=== PATIENT | female | born 1995 | race Caucasian/White ===

== ENCOUNTER 2017-01-23 17:14 | Emergency (ER) | payer OTHER ==
[2017-01-23 17:22] VITALS: BP 136/73; PULSE 84; TEMP 97.6; BMI 23.9
[2017-01-23 19:00] LABS: URINE APPEARANCE TURBID; URINE BILIRUBIN NEGATIVE (NEGATIVE); URINE COLOR YELLOW; URINE GLUCOSE (UA) NEGATIVE (NEGATIVE); URINE KETONE 2+ (NEGATIVE); URINE NITRITE NEGATIVE (NEGATIVE); URINE UROBILINOGEN NEGATIVE E.U./dl (0.2-1.0)
[2017-01-23 19:03] LABS: URINE BLOOD 2+ (NEGATIVE); URINE LEUK ESTERASE 3+ (NEGATIVE); URINE PROTEIN 1+ (NEGATIVE)
[2017-01-23 19:05] LABS: URINE BACTERIA FEW /hpf (NONE SEEN); URINE MUCUS FEW; URINE RBC 21 /hpf (0-3); URINE WBC 127 /hpf (3-5); YEAST RARE
[2017-01-23] MEDS ORDERED: ACETAMINOPHEN 325 MG TABLET (FP) ONE (19:24)
[2017-01-23] MEDS ORDERED: ACETAMINOPHEN 500 MG TABLET (FP) PO ONE (19:29)
--- NOTE | 2017-01-23 20:40 | PDOC ---
History of Present Illness - History of Present Illness Initial Comments: 01/23/17 20:47 Patient is a 21 year old female with significant medical hx of schizophrenia, anxiety/depression, bipolar disorder, and borderline personality disorder who is presenting to the ED s/p fall from last night. Last night the patient fell down a set of stairs at a friends house after having an argument around 1: 30AM. She states that before she fell, she felt dizzy, and then woke up at the bottom of the staircase. The patient states she fell down about 10 steps. She is complaining of pain to her neck, back of her head, elbows bilaterally, and left knee. The patient also notes noticing some blood in her urine today. Patient is not receiving medical treatment for her psychiatric history. LNMP: 01/20/17 Social Hx: marijuana use, current every day tobacco smoker Surgical Hx: oral surgery Allergies: NKDA <Ginette Hayward - Last Filed: 01/23/17 21:19> <Doris Drake - Last Filed: 01/23/17 21:21> - General Chief Complaint: Lightheaded Stated Complaint: FALL/INJURY Time Seen by Provider: 01/23/17 17:39 Past History <Ginette Hayward - Last Filed: 01/23/17 21:19> - Past Medical History Psychiatric Problems: Yes (schizo,bipolar,depression,multiple personality d/o) - Psycho/Social/Smoking Cessation Hx Anxiety: No Suicidal Ideation: No Smoking History: Never smoked Have you smoked in the past 12 months: Yes Number of Cigarettes Smoked Daily: 40 Information on smoking cessation initiated: Yes Hx Alcohol Use: No Drug/Substance Use Hx: Yes (marjuana) Substance Use Type: None <Doris Drake - Last Filed: 01/23/17 21:21> - Past Medical History Allergies/Adverse Reactions: Allergies Allergy/AdvReac Type Severity Reaction Status Date / Time No Known Allergies Allergy Verified 01/23/17 17:16 Home Medications: Ambulatory Orders NK [No Known Home Medication] 01/23/17 Review of Systems - Review of Systems Comments:: 01/23/17 20:48 CONSTITUTIONAL: Absent: fever, chills, diaphoresis, generalized weakness, malaise, loss of appetite HEENT: Absent: rhinorrhea, nasal congestion, throat pain, throat swelling, difficulty swallowing, mouth swelling, ear pain, eye pain, visual changes CARDIOVASCULAR: Absent: chest pain, syncope, palpitations, irregular heart rate, lightheadedness , peripheral edema RESPIRATORY: Absent: cough, shortness of breath, dyspnea with exertion, orthopnea, wheezing, stridor, hemoptysis GASTROINTESTINAL: Absent: abdominal pain, abdominal distension, nausea, vomiting, diarrhea, constipation, melena, hematochezia GENITOURINARY: Present: hematuria Absent: dysuria, frequency, urgency, hesitancy, flank pain, genital pain MUSCULOSKELETAL: Present: neck pain, elbow pain bilaterally, left knee pain Absent: myalgia, joint swelling SKIN: Absent: rash, itching, pallor HEMATOLOGIC/IMMUNOLOGIC: Absent: easy bleeding, easy bruising, lymphadenopathy, frequent infections ENDOCRINE: Absent: unexplained weight gain, unexplained weight loss, heat intolerance, cold intolerance NEUROLOGIC: Present: dizziness, headache Absent: focal weakness or paresthesia, unsteady gait, seizure, mental status changes, bladder or bowel incontinence. PSYCHIATRIC: Absent: anxiety, depression, suicidal or homicidal ideation, hallucinations <Ginette Hayward - Last Filed: 01/23/17 21:19> *Physical Exam - Vital Signs Last Vital Signs Temp Pulse Resp BP Pulse Ox 97.6 F 84 18 136/73 100 01/23/17 17:16 01/23/17 17:16 01/23/17 17:16 01/23/17 17:16 01/23/17 17:16 - Physical Exam Comments: 01/23/17 20:50 GENERAL: Well developed, well nourished. Awake and alert. No acute distress. HEENT: Normocephalic, atraumatic. PERRLA, EOMI. No conjunctival pallor. Sclera are non- icteric. Moist mucous membranes. Oropharynx is clear. NECK: Supple. Full ROM. No JVD. Carotid pulses 2+ and symmetric, without bruits. No thyromegaly. No lymphadenopathy. CARDIOVASCULAR: Regular rate and rhythm. No murmurs, rubs, or gallops. Distal pulses are 2+ and symmetric. PULMONARY: No evidence of respiratory distress. Lungs clear to auscultation bilaterally. No wheezing, rales or rhonchi. ABDOMINAL: Soft. Non-tender. Non-distended. No rebound or guarding. No organomegaly. Normoactive bowel sounds. MUSCULOSKELETAL: Lower left back tenderness. Normal range of motion at all joints. No bony deformities. EXTREMITIES: Right elbow superficial abrasion. Left elbow superficial abrasion with tenderness, No cyanosis. No clubbing. No edema. No calf tenderness. HAND: Superficial abrasion to the right thenar eminence. SKIN: Warm and dry. Normal capillary refill. No rashes. No jaundice. NEUROLOGICAL: Alert, awake, appropriate. Cranial nerves 2-12 intact. Normal speech. Gait is normal without ataxia. PSYCHIATRIC: Cooperative. Good eye contact. Appropriate mood and affect. <Ginette Hayward - Last Filed: 01/23/17 21:19> - Vital Signs Last Vital Signs Temp Pulse Resp BP Pulse Ox 97.6 F 84 18 136/73 100 01/23/17 17:16 01/23/17 17:16 01/23/17 17:16 01/23/17 17:16 01/23/17 17:16 <Doris Drake - Last Filed: 01/23/17 21:21> ED Treatment Course - ADDITIONAL ORDERS Additional order review: Laboratory Results 01/23/17 01/23/17 19:25 18:52 Urine Color Yellow Urine Appearance Turbid Urine pH 5.0 Urine Protein 1+ H Urine Glucose (UA) Negative Urine Ketones 2+ H Urine Blood 2+ H Urine Nitrite Negative Urine Bilirubin Negative Urine Urobilinogen Negative Ur Leukocyte Esterase 3+ H Urine RBC 21 Urine WBC 127 Ur Epithelial Cells Many Urine Bacteria Few Urine Mucus Few Urine Yeast Rare Urine HCG, Qual Negative - RADIOLOGY Radiograph Interpretation: 01/23/17 21:20 Blind Hanger: ([email or web address]) Report Date: 01/23/2017 20:18:00 Report Status: Preliminary Begin of Report Content Referring Physician: Doris Drake Patient Name: Tracey Martinez THIS IS A PRELIMINARY REPORT FROM [facility] EXAM: CT head/brain without contrast IMAGES: 163 EXAM DATE AND TIME: 2017-01-23 20:18:28.0 REASON FOR EXAM: Head trauma following a fall. COMPARISON: None FINDINGS: There are no calvarial, facial or skull base fractures. There are no intracranial hemorrhages or brain parenchymal contusion injuries. There are no extra-axial fluid collections or evidence of an intra-axial mass lesion. There is no evidence of an acute ischemic lesion at this time. The sulci and ventricles are normal in size. Orbital and petrous structures, cerebellopontine angles, and posterior fossa appear unremarkable. The paranasal and mastoid sinuses are clear. IMPRESSION: Normal CT scan of the head. No calvarial, facial or skull base fractures. No intracranial hemorrhages or brain parenchymal contusion injuries. . THIS DOCUMENT HAS BEEN ELECTRONICALLY SIGNED Aubrey Lizarraga MD. 01/23/2017 20:53 EVERETTE Sharma. Please call Imaging Return To Vendor [phone] ([phone]) with questions. End of Report Content - Medications Given in the ED: ED Medications Discontinued Medications Generic Name Dose Route Start Last Admin Trade Name Freq PRN Reason Stop Dose Admin Acetaminophen 1,000 mg 01/23/17 19:29 01/23/17 19:29 Tylenol - PO 01/23/17 19:30 1,000 mg NOW ONE Administration <Ginette Hayward - Last Filed: 01/23/17 21:19> - ADDITIONAL ORDERS Additional order review: Laboratory Results 01/23/17 01/23/17 19:25 18:52 Urine Color Yellow Urine Appearance Turbid Urine pH 5.0 Urine Protein 1+ H Urine Glucose (UA) Negative Urine Ketones 2+ H Urine Blood 2+ H Urine Nitrite Negative Urine Bilirubin Negative Urine Urobilinogen Negative Ur Leukocyte Esterase 3+ H Urine RBC 21 Urine WBC 127 Ur Epithelial Cells Many Urine Bacteria Few Urine Mucus Few Urine Yeast Rare Urine HCG, Qual Negative - RADIOLOGY Radiology Studies Ordered: Category Date Time Status HEAD CT WITHOUT CONTRAST [CT] Stat CT Scan 01/23/17 19:54 Taken - Medications Given in the ED: ED Medications Discontinued Medications Generic Name Dose Route Start Last Admin Trade Name Freq PRN Reason Stop Dose Admin Acetaminophen 1,000 mg 01/23/17 19:29 01/23/17 19:29 Tylenol - PO 01/23/17 19:30 1,000 mg NOW ONE Administration <Doris Drake - Last Filed: 01/23/17 21:21> *DC/Admit/Observation/Transfer - Attestations Scribe Attestion: 01/23/17 20:52 Documentation prepared by Ginette Hayward, acting as medical records clerk for Doris Drake MD. <Ginette Hayward - Last Filed: 01/23/17 21:19> <Doris Drake - Last Filed: 01/23/17 21:21> Diagnosis at time of Disposition: Traumatic injury of head Qualifiers: Encounter type: initial encounter Qualified Code(s): S09.90XA - Unspecified injury of head, initial encounter - Discharge Dispostion Disposition: HOME Condition at time of disposition: Stable - Patient Instructions Printed Discharge Instructions: DI for Closed Head Injury Additional Instructions: PLEASE TAKE TYLENOL OR MOTRIN FOR MUSCLE ACHES
== END 2017-01-23 22:23 | disposition home or self-care (01) ==
LOC: JER 17:14
DX: S09.8XXA Other specified injuries of head, initial encounter (principal); W10.8XXA Fall (on) (from) other stairs and steps, initial encounter; Y93.89 Activity, other specified; Y92.098 Other place in other non-institutional residence as the place of occurrence of the external cause; F20.9 Schizophrenia, unspecified; F41.8 Other specified anxiety disorders; F31.9 Bipolar disorder, unspecified; F60.9 Personality disorder, unspecified
CPT/HCPCS: 70450-TC; 81003; 81015; 84703; 87086; 99281-25